=== PATIENT | female | born 1975 | race Caucasian/White ===

== ENCOUNTER → 2016-06-15 | Outpatient (CLI) | payer SELFPAY ==
[~2016-06-15] MED LIST: CIPRO 500MG TA500 MG PO; DIFLUCAN150 MG PO; FAT ABSORB1 CAP PO; FLAGYL500 MG PO; LORTAB 5/500 501 TAB PO; METHIMAZOLE5 MG PO; NORCO 325 MG-51 TAB PO; PERCOCET 325 MG1 TA2 PO; PHENERGAN 25 TA25 MG PO; PHENERGAN25 MG RC; PYRIDIUM 100MG100 MG PO; VITAMIN D1000 IU PO; ZOFRAN 4MG T4 MG/TAB PO; lortab PO
== END ==
LOC: COL.RAD 09:36
DX: E04.9 Nontoxic goiter, unspecified (principal); E04.1 Nontoxic single thyroid nodule
CPT/HCPCS: A9516

== ENCOUNTER 2017-09-01 13:57 | Emergency (ER) | payer OTHER ==
[~2017-09-01] VITALS: Ht 165.1 cm; Wt 81.8 kg
[2017-09-01 14:15] VITALS: TEMP 97.7
[2017-09-01 14:19] LABS: COLLECTION METHOD CLEAN CATCH
[2017-09-01 14:22] LABS: BASO # 0.1 (0.0-0.2); BASO % 0.6 % (0.0-2.0); EOS # 0.4 (0.0-0.7); EOS % 4.3 % (0-4.0); GRAN # 6.2 (1.4-6.5); GRAN % 61.2 % (42.2-75.2); HEMATOCRIT 46.5 % (37.0-47.0); HEMOGLOBIN 15.7 g/dl (12.5-16.0); LYMPH # 2.7 (1.2-3.4); LYMPH % 26.8 % (20.0-51.0); MEAN CELL VOLUME 92 fl (80.0-100.0); MEAN CORPUSCULAR HEMOGLOBIN 31 pg (27.0-31.0); MEAN CORPUSCULAR HGB CONC 34 g/dl (33.0-37.0); MEAN PLATELET VOLUME 9.8 fl (7.4-10.4); MONO # 0.7 (0.1-0.6); MONO % 6.8 % (1.7-9.3); PLATELET COUNT 277 K/mm3 (130-400); RED BLOOD COUNT 5.07 M/mm3 (4.10-5.30); REDCELL DISTRIBUTION WIDTH-CV 13.8 % (11.5-14.5)
[2017-09-01 14:25] LABS: MUCOUS Present /lpf; PH 5 (5-8); SQUAMOUS EPITHELIAL 0-2 /hpf; URINE APPEARANCE Clear; URINE BACTERIA None Seen /hpf; URINE BILIRUBIN Negative (NEGATIVE); URINE BLOOD 1+ (NEGATIVE); URINE COLOR Amber; URINE GLUCOSE Negative (NEGATIVE); URINE KETONE Negative (NEGATIVE); URINE LEUKOCYTE ESTERASE Negative (NEGATIVE); URINE NITRATE Positive (NEGATIVE); URINE PROTEIN(semi-quant) Negative (NEGATIVE); URINE UROBILINOGEN >=4.0 mg/dL (NEGATIVE)
[2017-09-01 14:32] LABS: ALBUMIN 4.3 gm/dL (3.5-5.0); BILIRUBIN,TOTAL 0.6 mg/dL (0.0-1.0); CALCIUM 9.5 mg/dL (8.4-10.2); CREATININE, serum 0.82 mg/dL (0.52-1.25); TOTAL PROTEIN 8.3 gm/dL (6.4-8.2)
[2017-09-01] MEDS ORDERED: PRINIVIL20 MG PO (14:47)
[2017-09-01] MEDS ORDERED: SYNTHROID 0.10.15 MG PO (14:47)
[2017-09-01] MEDS ORDERED: NORCO 325 MG-51 TAB PO (15:25)
[2017-09-01] MEDS ORDERED: CEFTIN500 MG PO (15:25)
[2017-09-01 15:40] VITALS: BP 132/78; PULSE 76
== END 2017-09-01 15:40 | disposition home or self-care (01) ==
LOC: COL.ER 13:57
PROVIDERS: Emergency Medicine
DX: N39.0 Urinary tract infection, site not specified (principal); I10 Essential (primary) hypertension; E78.5 Hyperlipidemia, unspecified; F17.210 Nicotine dependence, cigarettes, uncomplicated; Z87.442 Personal history of urinary calculi; Z96.0 Presence of urogenital implants
CPT/HCPCS: J1885; J2270; J2405; J7030

== ENCOUNTER 2018-02-27 00:42 | Emergency (ER) | payer OTHER ==
[~2018-02-27] VITALS: Ht 165.1 cm; Wt 87.3 kg
[~2018-02-27 00:42] MED LIST changes: +CEFTIN500 MG PO; +PRINIVIL20 MG PO; +SYNTHROID 0.10.15 MG PO
[2018-02-27 00:46] VITALS: TEMP 97.9
[2018-02-27 01:30] LABS: COLLECTION METHOD CLEAN CATCH
[2018-02-27 01:32] LABS: BASO # 0.1 (0.0-0.2); BASO % 0.6 % (0.0-2.0); EOS # 0.5 (0.0-0.7); EOS % 4.7 % (0-4.0); GRAN # 6.4 (1.4-6.5); GRAN % 58.6 % (42.2-75.2); HEMATOCRIT 41.7 % (37.0-47.0); LYMPH # 3.1 (1.2-3.4); LYMPH % 28.4 % (20.0-51.0); MEAN CELL VOLUME 94 fl (80.0-100.0); MEAN CORPUSCULAR HEMOGLOBIN 31 pg (27.0-31.0); MEAN CORPUSCULAR HGB CONC 34 g/dl (33.0-37.0); MEAN PLATELET VOLUME 9.9 fl (7.4-10.4); MONO # 0.8 (0.1-0.6); MONO % 7.4 % (1.7-9.3); PLATELET COUNT 249 K/mm3 (130-400); RED BLOOD COUNT 4.46 M/mm3 (4.10-5.30); REDCELL DISTRIBUTION WIDTH-CV 13.8 % (11.5-14.5)
[2018-02-27 01:43] LABS: BILIRUBIN,TOTAL 0.2 mg/dL (0.0-1.0); CALCIUM 9.1 mg/dL (8.4-10.2); CREATININE, serum 0.69 mg/dL (0.52-1.25); POTASSIUM 3.5 mmol/L (3.4-5.0); TOTAL PROTEIN 7.1 gm/dL (6.4-8.2)
[2018-02-27 01:53] LABS: MUCOUS Present /lpf; PH 5 (5-8); URINE APPEARANCE Cloudy; URINE BACTERIA Rare /hpf; URINE BILIRUBIN Negative (NEGATIVE); URINE BLOOD 2+ (NEGATIVE); URINE CALCIUM OXALATE CRYSTAL Present /hpf; URINE COLOR Amber; URINE GLUCOSE Negative (NEGATIVE); URINE KETONE Negative (NEGATIVE); URINE LEUKOCYTE ESTERASE 2+ (NEGATIVE); URINE NITRATE Negative (NEGATIVE); URINE PROTEIN(semi-quant) Negative (NEGATIVE); URINE RBC 20-50 /hpf; URINE UROBILINOGEN >=4.0 mg/dL (NEGATIVE)
[2018-02-27] MEDS ORDERED: ZOFRAN 4MG T4 MG/TAB PO (03:27)
[2018-02-27] MEDS ORDERED: NORCO 325 MG-51 TAB PO (03:27)
[2018-02-27] MEDS ORDERED: CEPHALEXIN500 M1 PO (03:27)
[2018-02-27 03:38] LABS: COLLECTION METHOD CLEAN CATCH
[2018-02-27 04:02] LABS: MUCOUS Present /lpf; PH 6 (5-8); SQUAMOUS EPITHELIAL 0-2 /hpf; URINE APPEARANCE Clear; URINE BACTERIA None Seen /hpf; URINE BILIRUBIN Negative (NEGATIVE); URINE BLOOD 1+ (NEGATIVE); URINE COLOR Yellow; URINE GLUCOSE Negative (NEGATIVE); URINE KETONE Negative (NEGATIVE); URINE LEUKOCYTE ESTERASE 2+ (NEGATIVE); URINE NITRATE Negative (NEGATIVE); URINE PROTEIN(semi-quant) Negative (NEGATIVE); URINE UROBILINOGEN Negative (NEGATIVE)
[2018-02-27 04:54] VITALS: BP 151/94; PULSE 61
== END 2018-02-27 05:05 | disposition home or self-care (01) ==
LOC: COL.ER 00:42
PROVIDERS: Emergency Medicine
DX: N12 Tubulo-interstitial nephritis, not specified as acute or chronic (principal); N39.0 Urinary tract infection, site not specified; I10 Essential (primary) hypertension; E78.5 Hyperlipidemia, unspecified; F17.210 Nicotine dependence, cigarettes, uncomplicated; Z87.442 Personal history of urinary calculi
CPT/HCPCS: A4216; J0696; J2270; J2405; J7030; Q9967

== ENCOUNTER 2018-03-12 14:08 | Emergency (ER) | payer OTHER ==
[~2018-03-12] VITALS: Ht 165.1 cm; Wt 89.1 kg
[~2018-03-12 14:08] MED LIST changes: +CEPHALEXIN500 M1 PO; -SYNTHROID 0.10.15 MG PO; +SYNTHROID0.2 MG/TAB PO
[2018-03-12] MEDS ORDERED: ZOCOR 20MG20 MG PO (14:17)
[2018-03-12] MEDS ORDERED: ILOTYCIN5 MG/GM OP ×2 (14:27)
[2018-03-12 14:56] LABS: BASO # 0.1 (0.0-0.2); BASO % 0.6 % (0.0-2.0); EOS # 0.4 (0.0-0.7); EOS % 4.5 % (0-4.0); GRAN # 5.7 (1.4-6.5); GRAN % 62.7 % (42.2-75.2); HEMATOCRIT 45.1 % (37.0-47.0); HEMOGLOBIN 15.1 g/dl (12.5-16.0); LYMPH # 2.3 (1.2-3.4); LYMPH % 25.5 % (20.0-51.0); MEAN CELL VOLUME 95 fl (80.0-100.0); MEAN CORPUSCULAR HEMOGLOBIN 32 pg (27.0-31.0); MEAN CORPUSCULAR HGB CONC 34 g/dl (33.0-37.0); MEAN PLATELET VOLUME 10.4 fl (7.4-10.4); MONO # 0.6 (0.1-0.6); MONO % 6.5 % (1.7-9.3); PLATELET COUNT 283 K/mm3 (130-400); RED BLOOD COUNT 4.73 M/mm3 (4.10-5.30); REDCELL DISTRIBUTION WIDTH-CV 13.5 % (11.5-14.5)
[2018-03-12 15:00] LABS: ALBUMIN 4.6 gm/dL (3.5-5.0); BILIRUBIN,TOTAL 0.7 mg/dL (0.0-1.0); CALCIUM 8.6 mg/dL (8.4-10.2); CREATININE, serum 0.78 mg/dL (0.52-1.25); POTASSIUM 4.1 mmol/L (3.4-5.0); TOTAL PROTEIN 8.1 gm/dL (6.4-8.2)
[2018-03-12] MEDS ORDERED: CIPRO 500MG TA500 MG PO (15:43)
[2018-03-12 15:47] LABS: COLLECTION METHOD CLEAN CATCH
[2018-03-12 16:01] LABS: PH 6 (5-8); SQUAMOUS EPITHELIAL None Seen /hpf; URINE APPEARANCE Clear; URINE BACTERIA None Seen /hpf; URINE BILIRUBIN Negative (NEGATIVE); URINE BLOOD 1+ (NEGATIVE); URINE COLOR Yellow; URINE GLUCOSE Negative (NEGATIVE); URINE KETONE Negative (NEGATIVE); URINE LEUKOCYTE ESTERASE Negative (NEGATIVE); URINE NITRATE Negative (NEGATIVE); URINE PROTEIN(semi-quant) Negative (NEGATIVE); URINE RBC 0-2 /hpf; URINE UROBILINOGEN Negative (NEGATIVE)
[2018-03-12] MEDS ORDERED: NORCO 325 MG-51 TAB PO (17:55)
[2018-03-12 18:03] VITALS: BP 121/75; PULSE 59
== END 2018-03-12 18:10 | disposition home or self-care (01) ==
LOC: COL.ER 14:08
PROVIDERS: Emergency Medicine
DX: Q61.3 Polycystic kidney, unspecified (principal); E03.9 Hypothyroidism, unspecified; E11.9 Type 2 diabetes mellitus without complications; E78.5 Hyperlipidemia, unspecified; F17.210 Nicotine dependence, cigarettes, uncomplicated
CPT/HCPCS: J1885; J2060; J2405; J3010; J7030; Q9967

== ENCOUNTER 2018-10-13 20:38 | Emergency (ER) | payer OTHER ==
[~2018-10-13] VITALS: Ht 165.1 cm; Wt 81.8 kg
[~2018-10-13 20:38] MED LIST changes: +ILOTYCIN5 MG/GM OP; +ZOCOR 20MG20 MG PO
[2018-10-13 20:41] VITALS: TEMP 97
[2018-10-13 21:07] LABS: COLLECTION METHOD CLEAN CATCH
[2018-10-13 21:31] LABS: PH 6 (5-8); SQUAMOUS EPITHELIAL 0-2 /hpf; URINE APPEARANCE Clear; URINE BACTERIA None Seen /hpf; URINE BILIRUBIN Negative (NEGATIVE); URINE BLOOD Negative (NEGATIVE); URINE COLOR Amber; URINE GLUCOSE Negative (NEGATIVE); URINE KETONE Negative (NEGATIVE); URINE LEUKOCYTE ESTERASE Trace (NEGATIVE); URINE NITRATE Positive (NEGATIVE); URINE PROTEIN(semi-quant) Negative (NEGATIVE); URINE UROBILINOGEN >=4.0 mg/dL (NEGATIVE)
[2018-10-13 22:16] LABS: BASO % 0.4 % (0.0-2.0); EOS # 0.5 (0.0-0.7); GRAN # 5.1 (1.4-6.5); GRAN % 56.6 % (42.2-75.2); HEMATOCRIT 42.2 % (37.0-47.0); HEMOGLOBIN 13.8 g/dl (12.5-16.0); LYMPH # 2.6 (1.2-3.4); LYMPH % 28.9 % (20.0-51.0); MEAN CELL VOLUME 92 fl (80.0-100.0); MEAN CORPUSCULAR HEMOGLOBIN 30 pg (27.0-31.0); MEAN CORPUSCULAR HGB CONC 33 g/dl (33.0-37.0); MEAN PLATELET VOLUME 9.9 fl (7.4-10.4); MONO # 0.7 (0.1-0.6); PLATELET COUNT 245 K/mm3 (130-400); RED BLOOD COUNT 4.59 M/mm3 (4.10-5.30); REDCELL DISTRIBUTION WIDTH-CV 13.2 % (11.5-14.5)
[2018-10-13 22:31] LABS: ALBUMIN 4.1 gm/dL (3.5-5.0); BILIRUBIN,TOTAL 0.4 mg/dL (0.0-1.0); C-REACTIVE PROTEIN 0.7 mg/dL (0.0-0.9); CALCIUM 9.2 mg/dL (8.4-10.2); CREATININE, serum 0.86 (0.52-1.25); POTASSIUM 3.8 mmol/L (3.4-5.0); TOTAL PROTEIN 7.2 gm/dL (6.4-8.2)
[2018-10-13] MEDS ORDERED: OMNICEF 300MG300 MG PO (22:41)
[2018-10-13] MEDS ORDERED: ZOVIRAX 200MG200 MG PO (22:50)
[2018-10-13 22:54] VITALS: BP 148/89; PULSE 71
== END 2018-10-13 22:54 | disposition home or self-care (01) ==
LOC: COL.ER 20:38
PROVIDERS: Emergency Medicine; Physician Assistant
DX: N39.0 Urinary tract infection, site not specified (principal); F17.210 Nicotine dependence, cigarettes, uncomplicated
CPT/HCPCS: J0696

== ENCOUNTER 2024-01-11 18:51 | Emergency (ER) | payer OTHER ==
[~2024-01-11] VITALS: Ht 165.1 cm; Wt 84.1 kg
[~2024-01-11 18:51] MED LIST changes: +OMNICEF 300MG300 MG PO; +ZOVIRAX 200MG200 MG PO
[2024-01-11 18:59] VITALS: TEMP 97.9
[2024-01-11 19:41] LABS: COLLECTION METHOD CLEAN CATCH
[2024-01-11 19:44] LABS: BASO # 0.1 K/mm3 (0.0-0.2); BASO % 0.6 % (0.0-2.0); EOS # 0.5 K/mm3 (0.0-0.7); EOS % 5.2 % (0.0-4.0); GRAN # 5.8 K/mm3 (1.4-6.5); GRAN % 58.9 % (42.2-75.2); HEMATOCRIT 45.6 % (37.0-47.0); HEMOGLOBIN 15.5 g/dl (12.5-16.0); LYMPH # 2.8 K/mm3 (1.2-3.4); MEAN CELL VOLUME 89 fl (80.0-100.0); MEAN CORPUSCULAR HEMOGLOBIN 30 pg (27-31); MEAN CORPUSCULAR HGB CONC 34 g/dl (33.0-37.0); MEAN PLATELET VOLUME 10.5 fl (7.4-10.4); MONO # 0.7 K/mm3 (0.1-0.6); PLATELET COUNT 247 K/mm3 (130-400); RED BLOOD COUNT 5.11 M/mm3 (4.10-5.30); REDCELL DISTRIBUTION WIDTH-CV 12.6 % (11.5-14.5)
[2024-01-11 19:45] LABS: URINE APPEARANCE CLEAR (CLEAR/HAZY); URINE BLOOD NEGATIVE (NEGATIVE); URINE COLOR YELLOW (YELLOW); URINE GLUCOSE 3+ (NEGATIVE); URINE KETONE NEGATIVE (NEGATIVE); URINE NITRATE NEGATIVE (NEGATIVE); URINE PROTEIN(semi-quant) NEGATIVE (NEGATIVE); URINE UROBILINOGEN 0.2 E.U/dL (0.2-1.0)
[2024-01-11] MEDS ORDERED: NS 1,000 ML IV ONE (19:45)
[2024-01-11] MEDS ORDERED: fentaNYL 50 MCG/ML 2 ML VIAL IV ONE ×2 (19:45→20:30)
[2024-01-11 20:01] LABS: ALANINE AMINOTRANSFERASE 26 U/L (0-55); ALBUMIN 3.7 g/dL (3.5-5.0); ALKALINE PHOSPHATASE 93 U/L (40-150); ANION GAP 10 mmol/L (7-16); AST,SGOT 9 U/L (5-34); BLOOD UREA NITROGEN 11 mg/dL (7-19); C-REACTIVE PROTEIN 0.66 mg/dL (0.00-0.50); CHLORIDE 103 mEq/L (98-107); CREATININE, serum 0.96 mg/dL (0.57-1.11); GLUCOSE 316 mg/dL (70-99); POTASSIUM 3.9 mEq/L (3.5-4.5); SODIUM 136 mEq/L (136-145); TOTAL PROTEIN 7.2 g/dl (6.2-8.1)
[2024-01-11 20:23] LABS: BILIRUBIN,TOTAL < 0.5 mg/dL (0.2-1.2)
[2024-01-11] MEDS ORDERED: hydrALAZINE 20 MG/ML 1 ML VIAL IV ONE (20:30)
[2024-01-11] MEDS ORDERED: Insulin Regular Human (NovoLIN R/HumuLIN R) IV ONE (21:15)
[2024-01-11] MEDS ORDERED: NS 500 ML IV ONE (21:15)
[2024-01-11 22:16] VITALS: BP 154/80; PULSE 86
== END 2024-01-11 22:20 | disposition home or self-care (01) ==
LOC: COL.ER 18:51
PROVIDERS: Emergency Medicine
DX: I10 Essential (primary) hypertension (principal); E11.65 Type 2 diabetes mellitus with hyperglycemia; E86.0 Dehydration; Z79.84 Long term (current) use of oral hypoglycemic drugs
CPT/HCPCS: J0360; J1815; J3010; J7030; J7040

== ENCOUNTER 2024-02-09 15:00 | Emergency (ER) | payer OTHER ==
[~2024-02-09] VITALS: Ht 165.1 cm; Wt 81.8 kg
[2024-02-09 15:05] VITALS: TEMP 97.8
[2024-02-09 15:17] LABS: COLLECTION METHOD CLEAN CATCH
[2024-02-09 15:27] LABS: URINE APPEARANCE CLEAR (CLEAR/HAZY); URINE BLOOD 1+ (NEGATIVE); URINE COLOR Dark Yellow (YELLOW); URINE GLUCOSE NEGATIVE (NEGATIVE); URINE KETONE TRACE (NEGATIVE); URINE NITRATE POSITIVE (NEGATIVE); URINE PROTEIN(semi-quant) NEGATIVE (NEGATIVE)
[2024-02-09] MEDS ORDERED: CIPRO 500MG TA500 MG PO (15:55)
[2024-02-09] MEDS ORDERED: cefTRIAXone 1 G,Lidocaine PF 1% 2.1 ML IM ONE (16:00)
[2024-02-09 17:03] VITALS: BP 148/80; PULSE 80
== END 2024-02-09 17:05 | disposition home or self-care (01) ==
LOC: COL.ER 15:00
PROVIDERS: Physician Assistant
DX: N39.0 Urinary tract infection, site not specified (principal)
CPT/HCPCS: J0696